=== PATIENT | female | born 1990 ===

== ENCOUNTER 2018-02-14 08:18 | Outpatient (CLI) | payer MEDICAID ==
--- NOTE | 2018-02-14 09:05 | Ultrasound Report ---
RIGHT BREAST ULTRASOUND: 02/14/18 08:18:00 CLINICAL: 27-year-old with a right breast lump felt by her provider. COMPARISON: None. FINDINGS: Ultrasound the right breast(including all four quadrants and the retroareolar area) was performed and demonstrated normal fibroglandular structures with no mass, cyst or shadowing. Particular attention was given to the 12 to 1 o'clock area where she described something was felt. I examined the patient myself and felt no lump. IMPRESSION: Normal right breast ultrasound. BI-RADS 1 - - Negative RECOMMENDATION: Clinical followup and routine screening based on ACS guidelines.
== END 2018-02-14 08:19 | disposition home or self-care (01) ==
LOC: SPVWC 08:18
PROVIDERS: ATTEND Advanced Practice Midwife
DX: N64.4 Mastodynia (principal)